=== PATIENT | female | born 1935 | race African-American/Black ===

== ENCOUNTER → 2016-05-13 | Outpatient (CLI) | payer MEDICARE, BC ==
[2016-05-13 13:10] LABS: ANION GAP 10 (5-19); BLOOD UREA NITROGEN 22 mg/dL (7-20); CALCIUM 9.9 mg/dL (8.4-10.2); CARBON DIOXIDE 28 mmol/L (22-30); CHLORIDE 102 mmol/L (98-107); CREATININE RESULT 0.91 mg/dL (0.52-1.25); GLUCOSE 230 mg/dL (75-110); POTASSIUM 3.9 mmol/L (3.6-5.0); SODIUM 139.5 mmol/L (137-145)
== END ==
LOC: OD 11:44
PROVIDERS: ATTEND Family Medicine
DX: Z79.899 Other long term (current) drug therapy (principal)
CPT/HCPCS: 36415; 80048

== ENCOUNTER 2017-01-11 09:32 | Day surgery (SDC) | payer MEDICARE, BC ==
[~2017-01-11 09:32] MED LIST: PROPOFOL INJ 200 MG/20 ML VIAL IV ONE
[2017-01-11 10:55] VITALS: BP 142/62
--- NOTE | 2017-01-11 12:24 | Operative Report ---
Operative Report DATE OF SURGERY: 01/11/17 Operative Report: The risks, benefits and alternatives of the procedure including risks of bleeding, perforation requiring surgery are explained to the patient in detail and informed consent was obtained. Patient is taken back to the endoscopy suite and placed in the left, lateral decubital position. A timeout was called. Propofol medications administered. A rectal examination is done which did not reveal any masses, tears or fissures. An Olympus videoscope was inserted into the patient's rectum. The scope was then carefully advanced all the way to the cecum. The cecum was identified by the usual anatomical landmarks including the ileocecal valve as well as the appendiceal office. Photodocumentation was obtained. The scope was then sequentially pulled back via the various segments of the colon including the ascending colon, hepatic flexure, transverse colon, splenic flexure, descending colon finally to the rectosigmoid portions of the colon. Retroflexion maneuvers performed. The risks benefits and alternatives of the procedure explained to the patient in detail and informed consent is obtained.A GIF Olympus video scope was inserted into the patient's mouth and hypopharynx, the esophagus is identified intubated and insufflated, the scope was then advanced through the esophagus stomach and duodenum, retroflexion maneuver is done the esophagus stomach and first and second portions of the duodenum examined PREOPERATIVE DIAGNOSIS: Change in bowel habits. Gastroesophageal reflux disease POSTOPERATIVE DIAGNOSIS: Gastritis status post biopsy rule out Helicobacter pylori. Hiatal hernia. Right side colon Inflammation status post biopsy rule out lymphocytic, microscopic, collagenous colitis. Internal hemorrhoids OPERATION: Colonoscopy with biopsy. EGD with biopsy SURGEON: TARSHA LUQUE ANESTHESIA: LMAC TISSUE REMOVED OR ALTERED: As noted above. COMPLICATIONS: None. ESTIMATED BLOOD LOSS: None. INTRAOPERATIVE FINDINGS: As noted above. PROCEDURE: Patient tolerated procedure well. No immediate postprocedure complications are noted. Patient discharged in good condition. Discharge date 01/11/2017. Discharge diet: Regular. Discharge activity: Regular. 2-3 week follow-up to discuss findings. Patient is instructed to call the office or proceed to the emergency room should there be any further problems or questions. We will wait on pathology.
== END 2017-01-11 10:50 | disposition home or self-care (01) ==
LOC: END 09:32
PROVIDERS: ATTEND Internal Medicine Gastroenterology
PROC: 0DB68ZX Excision of Stomach, Via Natural or Artificial Opening Endoscopic, Diagnostic (ICD-10-PCS; principal; 2017-01-11 12:00)
PROC: 0DBF8ZX Excision of Right Large Intestine, Via Natural or Artificial Opening Endoscopic, Diagnostic (ICD-10-PCS; 2017-01-11 12:00)
DX: K44.9 Diaphragmatic hernia without obstruction or gangrene (principal); K52.9 Noninfective gastroenteritis and colitis, unspecified; K64.8 Other hemorrhoids; K21.9 Gastro-esophageal reflux disease without esophagitis; K29.50 Unspecified chronic gastritis without bleeding; E11.9 Type 2 diabetes mellitus without complications; Z79.899 Other long term (current) drug therapy; Z88.2 Allergy status to sulfonamides; Z88.8 Allergy status to other drugs, medicaments and biological substances; I35.0 Nonrheumatic aortic (valve) stenosis
CPT/HCPCS: 43239; 45380; 82962; 88342 ×2; 88305 ×2; J2704; 810

== ENCOUNTER → 2017-02-10 | Outpatient (CLI) | payer MEDICARE, BC ==
[2017-02-10 16:20] LABS: ANION GAP 9 (5-19); BLOOD UREA NITROGEN 18 mg/dL (7-20); CALCIUM 9.4 mg/dL (8.4-10.2); CARBON DIOXIDE 28 mmol/L (22-30); CHLORIDE 106 mmol/L (98-107); CREATININE RESULT 1.09 mg/dL (0.52-1.25); GLUCOSE 173 mg/dL (75-110); POTASSIUM 3.9 mmol/L (3.6-5.0); SODIUM 142.9 mmol/L (137-145)
== END ==
LOC: OD 15:40
PROVIDERS: ATTEND Internal Medicine Endocrinology, Diabetes & Metabolism
DX: E11.65 Type 2 diabetes mellitus with hyperglycemia (principal)
CPT/HCPCS: 36415; 80048

== ENCOUNTER → 2017-07-13 | Outpatient (CLI) | payer MEDICARE, BC ==
[2017-07-13 16:31] LABS: POTASSIUM 3.4 mmol/L (3.6-5.0)
== END ==
LOC: OD 14:22
PROVIDERS: ATTEND Family Medicine
DX: E87.6 Hypokalemia (principal)
CPT/HCPCS: 36415; 83735; 84132

== ENCOUNTER → 2018-09-22 | Outpatient (CLI) | payer MEDICARE, BC ==
[2018-09-22 11:43] LABS: ABSOLUTE EOSINOPHILS # (AUTO) 0.2 10^3/uL (0.0-0.6); ABSOLUTE LYMPHOCYTES (AUTO) 1.5 10^3/uL (0.5-4.7); ABSOLUTE MONOCYTES (AUTO) 0.3 10^3/uL (0.1-1.4); ABSOLUTE NEUT (AUTO) 1.6 10^3/uL (1.7-8.2); HEMATOCRIT 37.8 % (36.0-47.0); HEMOGLOBIN 12.4 g/dL (12.0-15.5); LYMPHOCYTES % (AUTO) 40.5 % (13-45); MEAN CORPUSCULAR HEMOGLOBIN 28.1 pg (27.0-33.4); MEAN CORPUSCULAR HGB CONC 32.7 g/dL (32.0-36.0); MEAN CORPUSCULAR VOLUME 86 fl (80-97); MONOCYTES % (AUTO) 8.2 % (3-13); PLATELET COUNT 165 10^3/uL (150-450); RED BLOOD COUNT 4.39 10^6/uL (3.72-5.28); RED CELL DISTRIBUTION WIDTH 14.4 % (11.5-14.0); SEGMENTED NEUTROPHILS % (AUTO) 45.3 % (42-78); TOTAL CELLS COUNTED % (AUTO) 100 %; WHITE BLOOD COUNT 3.6 10^3/uL (4.0-10.5)
[2018-09-22 11:48] LABS: APPEARANCE,URINE CLEAR; BILIRUBIN,URINE NEGATIVE (NEGATIVE); COLOR,URINE YELLOW; GLUCOSE, URINE 50 mg/dL (NEGATIVE); KETONES,URINE NEGATIVE (NEGATIVE); LEUKOCYTE ESTERASE,URINE NEGATIVE (NEGATIVE); NITRITE,URINE NEGATIVE (NEGATIVE); PROTEIN,URINE NEGATIVE (NEGATIVE); URINE SPECIFIC GRAVITY 1.016; UROBILINOGEN,URINE NEGATIVE mg/dL (<2.0)
[2018-09-22 12:09] LABS: ALANINE AMINOTRANSFERASE 24 U/L (9-52); ALBUMIN 4.3 g/dL (3.5-5.0); ALKALINE PHOSPHATASE 98 U/L (38-126); ANION GAP 9 (5-19); ASPARTATE AMINO TRANSFERASE 28 U/L (14-36); BILIRUBIN,DIRECT 0.3 mg/dL (0.0-0.4); BILIRUBIN,TOTAL 0.5 mg/dL (0.2-1.3); BLOOD UREA NITROGEN 20 mg/dL (7-20); CALCIUM 9.9 mg/dL (8.4-10.2); CARBON DIOXIDE 30 mmol/L (22-30); CHLORIDE 103 mmol/L (98-107); CHOLESTEROL 211.36 mg/dL (0-200); GLUCOSE 161 mg/dL (75-110); SODIUM 141.5 mmol/L (137-145); TOTAL PROTEIN 7.5 g/dL (6.3-8.2); TRIGLYCERIDES 118 mg/dL (<150)
[2018-09-22 12:20] LABS: DIRECT LDL 124 mg/dL (<100)
[2018-09-23 11:38] LABS: CREATININE URINE 113.5 mg/dL (Not Estab.); MICROALBUMIN URINE 21.2 ug/mL (Not Estab.)
== END ==
LOC: OD 10:44
PROVIDERS: ATTEND Internal Medicine Endocrinology, Diabetes & Metabolism
DX: E11.65 Type 2 diabetes mellitus with hyperglycemia (principal); E53.8 Deficiency of other specified B group vitamins; E55.9 Vitamin D deficiency, unspecified
CPT/HCPCS: 36415; 80053; 80061; 81001; 82043; 82306; 82570; 82607; 83036; 83921; 84443; 85025

== ENCOUNTER → 2019-01-31 | Outpatient (CLI) | payer MEDICARE, BC ==
[2019-01-31 10:55] LABS: ABSOLUTE EOSINOPHILS # (AUTO) 0.1 10^3/uL (0.0-0.6); ABSOLUTE LYMPHOCYTES (AUTO) 1.4 10^3/uL (0.5-4.7); ABSOLUTE MONOCYTES (AUTO) 0.3 10^3/uL (0.1-1.4); ABSOLUTE NEUT (AUTO) 1.6 10^3/uL (1.7-8.2); BASOPHILS % (AUTO) 1.1 % (0-2); EOSINOPHILS % (AUTO) 3.7 % (0-6); HEMATOCRIT 36.9 % (36.0-47.0); HEMOGLOBIN 12.2 g/dL (12.0-15.5); MEAN CORPUSCULAR HEMOGLOBIN 28.3 pg (27.0-33.4); MEAN CORPUSCULAR HGB CONC 33.1 g/dL (32.0-36.0); MEAN CORPUSCULAR VOLUME 86 fl (80-97); MONOCYTES % (AUTO) 9.4 % (3-13); PLATELET COUNT 173 10^3/uL (150-450); RED BLOOD COUNT 4.32 10^6/uL (3.72-5.28); RED CELL DISTRIBUTION WIDTH 14.5 % (11.5-14.0); SEGMENTED NEUTROPHILS % (AUTO) 46.8 % (42-78); TOTAL CELLS COUNTED % (AUTO) 100 %; WHITE BLOOD COUNT 3.5 10^3/uL (4.0-10.5)
[2019-01-31 11:38] LABS: APPEARANCE,URINE SLIGHTLY-CLOUDY; BILIRUBIN,URINE NEGATIVE (NEGATIVE); COLOR,URINE YELLOW; GLUCOSE, URINE NEGATIVE (NEGATIVE); KETONES,URINE NEGATIVE (NEGATIVE); LEUKOCYTE ESTERASE,URINE NEGATIVE (NEGATIVE); NITRITE,URINE NEGATIVE (NEGATIVE); PROTEIN,URINE NEGATIVE (NEGATIVE); UROBILINOGEN,URINE NEGATIVE mg/dL (<2.0)
[2019-01-31 11:53] LABS: ALBUMIN 4.1 g/dL (3.5-5.0); ALKALINE PHOSPHATASE 83 U/L (38-126); ANION GAP 6 (5-19); ASPARTATE AMINO TRANSFERASE 22 U/L (14-36); BILIRUBIN,DIRECT 0.1 mg/dL (0.0-0.4); BILIRUBIN,TOTAL 0.4 mg/dL (0.2-1.3); BLOOD UREA NITROGEN 23 mg/dL (7-20); CALCIUM 9.9 mg/dL (8.4-10.2); CARBON DIOXIDE 31 mmol/L (22-30); CHLORIDE 105 mmol/L (98-107); GLUCOSE 158 mg/dL (75-110); POTASSIUM 4.4 mmol/L (3.6-5.0); TOTAL PROTEIN 7.4 g/dL (6.3-8.2)
[2019-01-31 12:29] LABS: ALBUMIN 4.1 g/dL (3.5-5.0); ALKALINE PHOSPHATASE 83 U/L (38-126); ANION GAP 6 (5-19); ASPARTATE AMINO TRANSFERASE 22 U/L (14-36); BILIRUBIN,DIRECT 0.1 mg/dL (0.0-0.4); BILIRUBIN,TOTAL 0.4 mg/dL (0.2-1.3); BLOOD UREA NITROGEN 23 mg/dL (7-20); CALCIUM 9.9 mg/dL (8.4-10.2); CARBON DIOXIDE 31 mmol/L (22-30); CHLORIDE 105 mmol/L (98-107); CHOLESTEROL 182.66 mg/dL (0-200); DIRECT LDL 119 mg/dL (<100); GLUCOSE 158 mg/dL (75-110); POTASSIUM 4.4 mmol/L (3.6-5.0); TOTAL PROTEIN 7.4 g/dL (6.3-8.2); TRIGLYCERIDES 117 mg/dL (<150)
[2019-01-31 12:31] LABS: DIGOXIN < 0.40 ng/mL (0.8-2.0)
[2019-02-01 13:46] LABS: CREATININE URINE 172.2 mg/dL (Not Estab.); MICROALBUMIN URINE 25.7 ug/mL (Not Estab.)
== END ==
LOC: OD 10:07
PROVIDERS: ATTEND Internal Medicine Endocrinology, Diabetes & Metabolism
DX: E87.6 Hypokalemia (principal); E11.42 Type 2 diabetes mellitus with diabetic polyneuropathy; E11.65 Type 2 diabetes mellitus with hyperglycemia; E53.9 Vitamin B deficiency, unspecified; E55.9 Vitamin D deficiency, unspecified; Z51.81 Encounter for therapeutic drug level monitoring; Z79.899 Other long term (current) drug therapy
CPT/HCPCS: 36415; 80053; 80061; 80162; 81001; 82043; 82306; 82570; 82607; 83036; 83735; 83921; 84443; 85025; 87070

== ENCOUNTER → 2019-04-07 | Outpatient (CLI) | payer MEDICARE, BC ==
[2019-04-07 12:25] LABS: ABSOLUTE EOSINOPHILS # (AUTO) 0.1 10^3/uL (0.0-0.6); ABSOLUTE LYMPHOCYTES (AUTO) 1.5 10^3/uL (0.5-4.7); ABSOLUTE MONOCYTES (AUTO) 0.3 10^3/uL (0.1-1.4); ABSOLUTE NEUT (AUTO) 1.9 10^3/uL (1.7-8.2); BASOPHILS % (AUTO) 1.3 % (0-2); EOSINOPHILS % (AUTO) 2.1 % (0-6); LYMPHOCYTES % (AUTO) 39.1 % (13-45); MEAN CORPUSCULAR HEMOGLOBIN 28.3 pg (27.0-33.4); MEAN CORPUSCULAR HGB CONC 33.3 g/dL (32.0-36.0); MEAN CORPUSCULAR VOLUME 85 fl (80-97); MONOCYTES % (AUTO) 8.9 % (3-13); PLATELET COUNT 186 10^3/uL (150-450); RED BLOOD COUNT 4.24 10^6/uL (3.72-5.28); RED CELL DISTRIBUTION WIDTH 14.6 % (11.5-14.0); SEGMENTED NEUTROPHILS % (AUTO) 48.6 % (42-78); TOTAL CELLS COUNTED % (AUTO) 100 %; WHITE BLOOD COUNT 3.8 10^3/uL (4.0-10.5)
--- NOTE | 2019-04-07 12:38 | RADIOLOGY REPORT (SQ) ---
EXAM DESCRIPTION: CHEST PA/LATERAL COMPLETED DATE/TIME: 04/07/2019 12:25 pm REASON FOR STUDY: UNSPECIFIED BACTERIAL PNEUMONIA COMPARISON: PA and lateral views of the chest from 09/04/2018. EXAM PARAMETERS: NUMBER OF VIEWS: two views TECHNIQUE: Digital Frontal and Lateral radiographic views of the chest acquired. RADIATION DOSE: NA LIMITATIONS: none FINDINGS: LUNGS AND PLEURA: No consolidation, pleural effusion or pneumothorax. MEDIASTINUM AND HILAR STRUCTURES: No mediastinal or hilar contour abnormality. HEART AND VASCULAR STRUCTURES: Borderline cardiomegaly. The pulmonary vasculature is within normal l imits. BONES: No acute findings. HARDWARE: None in the chest. OTHER: No other finding. IMPRESSION: Borderline cardiomegaly without a superimposed acute cardiopulmonary process. TECHNICAL DOCUMENTATION: JOB ID: [id number] [employer]- All Rights Reserved Reading location - IP/workstation name: [email or web address]
[2019-04-07 13:10] LABS: ANION GAP 8 (5-19); BLOOD UREA NITROGEN 16 mg/dL (7-20); CARBON DIOXIDE 30 mmol/L (22-30); CHLORIDE 102 mmol/L (98-107); GLUCOSE 199 mg/dL (75-110); POTASSIUM 4.1 mmol/L (3.6-5.0)
== END ==
LOC: OD 11:58
PROVIDERS: ATTEND Family Medicine
DX: E87.6 Hypokalemia (principal); J15.9 Unspecified bacterial pneumonia
CPT/HCPCS: 36415; 71046; 80048; 83735; 85025

== ENCOUNTER → 2019-05-11 | Outpatient (CLI) | payer MEDICARE, BC ==
[2019-05-11 10:57] LABS: HEMATOCRIT 36.3 % (36.0-47.0); HEMOGLOBIN 12.1 g/dL (12.0-15.5); MEAN CORPUSCULAR HEMOGLOBIN 28.3 pg (27.0-33.4); MEAN CORPUSCULAR HGB CONC 33.3 g/dL (32.0-36.0); MEAN CORPUSCULAR VOLUME 85 fl (80-97); PLATELET COUNT 180 10^3/uL (150-450); RED BLOOD COUNT 4.28 10^6/uL (3.72-5.28); RED CELL DISTRIBUTION WIDTH 14.6 % (11.5-14.0); WHITE BLOOD COUNT 3.5 10^3/uL (4.0-10.5)
[2019-05-11 11:03] LABS: APPEARANCE,URINE CLEAR; BILIRUBIN,URINE NEGATIVE (NEGATIVE); COLOR,URINE YELLOW; GLUCOSE, URINE NEGATIVE (NEGATIVE); KETONES,URINE NEGATIVE (NEGATIVE); LEUKOCYTE ESTERASE,URINE TRACE (NEGATIVE); NITRITE,URINE NEGATIVE (NEGATIVE); PROTEIN,URINE 30 mg/dL (NEGATIVE); UROBILINOGEN,URINE NEGATIVE mg/dL (<2.0)
[2019-05-11 11:17] LABS: ALKALINE PHOSPHATASE 85 U/L (38-126); ANION GAP 6 (5-19); ASPARTATE AMINO TRANSFERASE 22 U/L (14-36); BILIRUBIN,DIRECT 0.2 mg/dL (0.0-0.4); BILIRUBIN,TOTAL 0.4 mg/dL (0.2-1.3); BLOOD UREA NITROGEN 24 mg/dL (7-20); CALCIUM 9.7 mg/dL (8.4-10.2); CARBON DIOXIDE 30 mmol/L (22-30); CHLORIDE 104 mmol/L (98-107); CHOLESTEROL 183.32 mg/dL (0-200); GLUCOSE 150 mg/dL (75-110); POTASSIUM 4.2 mmol/L (3.6-5.0); TOTAL PROTEIN 7.4 g/dL (6.3-8.2); TRIGLYCERIDES 152 mg/dL (<150)
[2019-05-11 11:28] LABS: DIRECT LDL 114 mg/dL (<100)
[2019-05-11 11:32] LABS: VLDL CHOLESTEROL 30.4 mg/dL (10-31)
[2019-05-12 11:37] LABS: MICROALBUMIN URINE 20.2 ug/mL (Not Estab.)
== END ==
LOC: OD 10:17
PROVIDERS: ATTEND Internal Medicine Endocrinology, Diabetes & Metabolism
DX: E11.65 Type 2 diabetes mellitus with hyperglycemia (principal)
CPT/HCPCS: 36415; 80053; 80061; 81001; 82043; 82570; 83036; 84443; 85027

== ENCOUNTER → 2019-10-03 | Outpatient (CLI) | payer MEDICARE, BC ==
[2019-10-03 12:13] LABS: ABSOLUTE EOSINOPHILS # (AUTO) 0.2 10^3/uL (0.0-0.6); ABSOLUTE LYMPHOCYTES (AUTO) 1.5 10^3/uL (0.5-4.7); ABSOLUTE MONOCYTES (AUTO) 0.4 10^3/uL (0.1-1.4); ABSOLUTE NEUT (AUTO) 1.6 10^3/uL (1.7-8.2); EOSINOPHILS % (AUTO) 4.2 % (0-6); HEMATOCRIT 34.3 % (36.0-47.0); HEMOGLOBIN 11.2 g/dL (12.0-15.5); LYMPHOCYTES % (AUTO) 40.1 % (13-45); MEAN CORPUSCULAR HEMOGLOBIN 28.2 pg (27.0-33.4); MEAN CORPUSCULAR HGB CONC 32.8 g/dL (32.0-36.0); MEAN CORPUSCULAR VOLUME 86 fl (80-97); MONOCYTES % (AUTO) 11.2 % (3-13); PLATELET COUNT 186 10^3/uL (150-450); RED BLOOD COUNT 3.99 10^6/uL (3.72-5.28); RED CELL DISTRIBUTION WIDTH 14.2 % (11.5-14.0); SEGMENTED NEUTROPHILS % (AUTO) 43.5 % (42-78); TOTAL CELLS COUNTED % (AUTO) 100 %; WHITE BLOOD COUNT 3.8 10^3/uL (4.0-10.5)
[2019-10-03 12:35] LABS: APPEARANCE,URINE CLEAR; BILIRUBIN,URINE NEGATIVE (NEGATIVE); COLOR,URINE YELLOW; GLUCOSE, URINE NEGATIVE (NEGATIVE); KETONES,URINE NEGATIVE (NEGATIVE); LEUKOCYTE ESTERASE,URINE NEGATIVE (NEGATIVE); NITRITE,URINE NEGATIVE (NEGATIVE); PROTEIN,URINE NEGATIVE (NEGATIVE); URINE SPECIFIC GRAVITY 1.018; UROBILINOGEN,URINE NEGATIVE mg/dL (<2.0)
[2019-10-03 12:37] LABS: ALKALINE PHOSPHATASE 85 U/L (38-126); ASPARTATE AMINO TRANSFERASE 20 U/L (14-36); BILIRUBIN,TOTAL 0.5 mg/dL (0.2-1.3); BLOOD UREA NITROGEN 21 mg/dL (7-20); CALCIUM 9.7 mg/dL (8.4-10.2); CARBON DIOXIDE 29 mmol/L (22-30); CHOLESTEROL 181.68 mg/dL (0-200); GLUCOSE 126 mg/dL (75-110); POTASSIUM 3.9 mmol/L (3.6-5.0); TOTAL PROTEIN 7.2 g/dL (6.3-8.2); TRIGLYCERIDES 108 mg/dL (<150)
[2019-10-03 12:42] LABS: ANION GAP 5 (5-19); CHLORIDE 105 mmol/L (98-107)
[2019-10-03 12:51] LABS: DIRECT LDL 111 mg/dL (<100)
[2019-10-04 12:37] LABS: CREATININE URINE 220.4 mg/dL (Not Estab.); MICROALBUMIN URINE 17.4 ug/mL (Not Estab.)
== END ==
LOC: OD 10:41
PROVIDERS: ATTEND Internal Medicine Endocrinology, Diabetes & Metabolism
DX: E11.65 Type 2 diabetes mellitus with hyperglycemia (principal)
CPT/HCPCS: 36415; 80053; 80061; 81001; 82043; 82570; 83036; 84443; 85025

== ENCOUNTER → 2020-02-02 | Outpatient (CLI) | payer MEDICARE, BC | LOC: OD 12:34 | PROVIDERS: ATTEND Family Medicine | DX: E87.6 Hypokalemia (principal) | CPT/HCPCS: 36415; 83735 ==